=== PATIENT | female | born 1975 | race Caucasian/White ===

== ENCOUNTER 2020-07-08 18:10 | Emergency (ER) | payer OTHER ==
[~2020-07-08] VITALS: Ht 170.2 cm; Wt 76.7 kg
[2020-07-08 18:16] VITALS: Ht 170.2 cm; Wt 76.7 kg
[2020-07-08 20:28] VITALS: BP 130/89
== END 2020-07-08 20:28 | disposition home or self-care (01) ==
LOC: ED 18:10
DX: S61.234A Puncture wound without foreign body of right ring finger without damage to nail, initial encounter (principal); F41.9 Anxiety disorder, unspecified; E03.9 Hypothyroidism, unspecified; W46.0XXA Contact with hypodermic needle, initial encounter; Y93.89 Activity, other specified; Y92.89 Other specified places as the place of occurrence of the external cause; Y99.8 Other external cause status
CPT/HCPCS: 90715